=== PATIENT | male | born 1995 | race Caucasian/White ===

== ENCOUNTER 2021-07-16 08:18 | Emergency (ER) | payer OTHER ==
[~2021-07-16] VITALS: Ht 175.3 cm; Wt 80.0 kg
[~2021-07-16 08:18] MED LIST: AMOXICILLIN875 MG OR; BACTRIM DS1 TAB OR; Levaquin OR; MOTRIN400 MG OR; NASONEX50 MCG/AC; OMEPRAZOLE20 MG PO; TESSALON200 MG PO; TUBERSOL5 MG/0.1 M ID; ULTRAM50 MG OR; ZOFRAN ODT4 MG OR
[2021-07-16] MEDS ORDERED: OMNI-PAC300 MG PO (09:48)
[2021-07-16 10:19] VITALS: BP 135/80
== END 2021-07-16 10:19 | disposition home or self-care (01) | DRG 605 ==
LOC: ED 08:18
DX: S60.511A Abrasion of right hand, initial encounter (principal); S60.811A Abrasion of right wrist, initial encounter; S50.812A Abrasion of left forearm, initial encounter; S00.83XA Contusion of other part of head, initial encounter; V53.5XXA Driver of pick-up truck or van injured in collision with car, pick-up truck or van in traffic accident, initial encounter

== ENCOUNTER 2024-07-17 14:46 | Emergency (ER) | payer SELFPAY ==
[~2024-07-17] VITALS: Ht 175.3 cm; Wt 90.7 kg
[2024-07-17] VITALS (9 sets, daily range): BP systolic 134–159; BP diastolic 83–99
[~2024-07-17 14:46] MED LIST changes: +OMNI-PAC300 MG PO
[2024-07-17] MEDS ORDERED: HYDROmorphone HCL 2 MG/AMP IV ONE (15:00)
[2024-07-17] MEDS ORDERED: Diph, Acellular Pertussis, Tet 0.5 ML/VIAL (Tdap) SDV IM ONE (15:00)
[2024-07-17 15:12] LABS: BASO% 0.5 % (0-3); EOS% 3.6 % (0-8); HEMATOCRIT 43.4 % (39.0-50.0); HEMOGLOBIN 14.8 g/dl (14.0-18.0); IMMATURE GRANULOCYTES 0.7 % (0.0-5.0); LYMPH% 24.9 % (15-41); MEAN CELL VOLUME 82.7 fL CALC (80.0-100.0); MEAN CORPUSCULAR HGB 28.2 pG CALC (26.0-32.0); MEAN CORPUSCULAR HGB CONC 34.1 g/dL CAL (32.0-36.0); NEUT# 6.24 thou/uL (1.82-7.42); NEUT% 63.3 % (42-76); RED BLOOD COUNT 5.25 mill/uL (4.70-6.10); RED CELL DISTRI WIDTH 11.9 % (11.5-15.5)
[2024-07-17 15:26] LABS: ALBUMIN 4.6 g/dL (3.2-5.0); CREATININE 1.2 mg/dL (0.7-1.3); POTASSIUM 4.1 mmol/l (3.5-5.1); TOTAL PROTEIN 7.2 g/dL (6.3-8.2)
[2024-07-17 15:28] LABS: BILIRUBIN, TOTAL 0.7 mg/dL (0.2-1.3)
[2024-07-17 15:30] LABS: INTERNATIONAL NORMALIZED RATIO 1.1 RATIO (0.7-1.3)
[2024-07-17 15:32] LABS: PROTHROMBIN TIME 11.7 SECONDS (9.0-12.5)
[2024-07-17] MEDS ORDERED: PERCOCET1 TA4 PO ×2 (16:40→19:17)
[2024-07-17] MEDS ORDERED: oxyCODONE 10MG/APAP 325 MG 1 COMBO TAB PO PRN (18:00)
[2024-07-17] MEDS ORDERED: PERCOCET 10/31 COMBO PO (19:26)
== END 2024-07-17 17:25 | disposition home or self-care (01) | DRG 999 ==
LOC: ED 14:46
PROVIDERS: Family Medicine
DX: S42.002A Fracture of unspecified part of left clavicle, initial encounter for closed fracture (principal); S22.42XA Multiple fractures of ribs, left side, initial encounter for closed fracture; S60.512A Abrasion of left hand, initial encounter; S40.812A Abrasion of left upper arm, initial encounter; S00.81XA Abrasion of other part of head, initial encounter; S80.212A Abrasion, left knee, initial encounter; V86.56XA Driver of dirt bike or motor/cross bike injured in nontraffic accident, initial encounter
CPT/HCPCS: 90715; J1171